=== PATIENT | male | born 1955 | race Caucasian/White ===

== ENCOUNTER → 2021-06-09 | Outpatient (CLI) | payer MEDICARE, OTHER ==
--- NOTE | 2021-06-09 14:21 | Diagnostic Imaging Report ---
PROCEDURE: MRI lumbar spine. TECHNIQUE: Multiplanar, multisequence MRI of the lumbar spine was performed without contrast. INDICATION: Low back pain. COMPARISON: None available. FINDINGS: Normal lordosis of the lumbar spine. No spondylolisthesis. No fracture or marrow replacing process. No features of sacral insufficiency fracture. The distal thoracic cord is normal in appearance. No abnormal clumping of the intrathecal nerve roots. The bilateral psoas and paravertebral muscles are normal in appearance. L1-L2: Circumferential disc bulge. No facet arthritis or ligamentum flavum hypertrophy. There is no resultant spinal stenosis or foraminal narrowing. L2-L3: Circumferential disc bulge is asymmetric to the right and there is mild ligamentum flavum hypertrophy. This results in mild narrowing of the right lateral recess but no compression of the transversing nerve roots. Overall there is mild spinal stenosis and [id number] right foraminal narrowing. L3-L4: Diffuse disc bulge with mild ligamentum flavum hypertrophy. No spinal stenosis. Mild bilateral foraminal narrowing. L4-L5: Disc bulge with small central disc protrusion results in moderate narrowing of the right lateral recess but no compression of the nerve root. Mild spinal stenosis is present. Moderate right and mild left foraminal stenosis. L5-S1: No spinal canal or foraminal narrowing. IMPRESSION: 1. No acute abnormality in the lumbar spine. 2. Multilevel degenerative disc disease is most advanced at L4-L5 where there is mild spinal stenosis, moderate right lateral recess narrowing and moderate right foraminal narrowing. Dictated by: Dictated on workstation # [id number]
== END ==
LOC: RAD 09:30
PROVIDERS: ATTEND Physician Assistant
DX: M51.36 Other intervertebral disc degeneration, lumbar region (principal); M48.061 Spinal stenosis, lumbar region without neurogenic claudication
CPT/HCPCS: 72148

== ENCOUNTER 2021-09-10 20:13 | Emergency (ER) | payer MEDICARE, OTHER ==
[~2021-09-10] VITALS: Ht 185 cm; Wt 108.9 kg
--- NOTE | 2021-09-10 20:23 | ED General ---
General Stated Complaint: LEFT ANKLE INJURY History of Present Illness Date Seen by Provider: Sep 10, 2021 Time Seen by Provider: 20:23 Initial Comments Patient presenting to the emergency department for evaluation of left ankle pain that started earlier today while he was marching in the [place] [facility]. He has had increasing pain to the point he can no longer ambulate on it and now the joint is swollen. He denies any weakness numbness tingling erythema warmth and no prior DVT or PE. He is in no acute distress with normal vital signs. Allergies and Home Medications Allergies Coded Allergies: No Known Drug Allergies (Unverified , 09/10/21) Patient Home Medication List Home Medication List Reviewed: Yes Review of Systems Review of Systems Constitutional: no symptoms reported Musculoskeletal: joint pain, joint swelling Skin: no symptoms reported Psychiatric/Neurological: No Symptoms Reported All Other Systems Reviewed Negative Unless Noted: Yes Physical Exam Vital Signs Vital Signs - First Documented 09/10/21 20:18 Temp 36.1 Pulse 98 Resp 18 B/P (MAP) 179/72 (107) Pulse Ox 96 O2 Delivery Room Air Capillary Refill : Height, Weight, BMI Height: '" Weight: lbs. oz. kg; BMI Method: General Appearance: No Apparent Distress, WD/WN Extremity: Normal Capillary Refill, No Calf Tenderness, No Pedal Edema, Other (Left ankle tenderness to palpation of the lateral malleolus and the anterior ankle with a joint effusion noted. No erythema warmth. No bony tenderness along the foot or proximal tib-fib.) Neurologic/Psychiatric: Alert, Oriented x3, No Motor/Sensory Deficits Skin: Warm/Dry Progress/Results/Core Measures Suspected Sepsis SIRS Temperature: Pulse: Respiratory Rate: Blood Pressure / Mean: Results/Orders My Orders Orders - YVETTE SNELL DO Ankle 3 View Left (09/10/21 20:23) Ibuprofen Tablet (Motrin Tablet) (09/10/21 20:30) Hydrocodone/Apap 5/325 Tablet (Lortab 5 (09/10/21 20:30) Medications Given in ED Current Medications Medications Dose Ordered Sig/Kari Route Start Time Stop Time Status Last Admin Dose Admin Acetaminophen/ Hydrocodone Bitart 2 ea ONCE ONCE PO 09/10/21 20:30 09/10/21 20:32 DC 09/10/21 21:00 2 EA Ibuprofen 800 mg ONCE ONCE PO 09/10/21 20:30 09/10/21 20:32 DC 09/10/21 21:01 800 MG Vital Signs/I&O 09/10/21 20:18 Temp 36.1 Pulse 98 Resp 18 B/P (MAP) 179/72 (107) Pulse Ox 96 O2 Delivery Room Air Capillary Refill : Progress Note : Progress Note X-ray is negative for acute process I told him he likely has a sprain with possible partial tear versus full tear and recommended he stay on crutches with an Aircast in place and I will prescribe him supportive medications told to follow-up with his primary care provider within 1 week for recheck as he may need further testing and treatment and come back to the emergency department sooner worsening pain swelling or other general concerns. Patient aware and agreeable with plan and verbalized understanding of the above instructions. Departure Impression Primary Impression: Left ankle effusion Additional Impression: Left ankle sprain Qualified Codes: S93.402A - Sprain of unspecified ligament of left ankle, initial encounter Disposition: HOME, SELF-CARE Condition: Stable Departure-Patient Inst. Referrals: LEFTY AMADO MD (PCP) Primary Care Physician STANLEY VICENTE MD (Family) Primary Care Physician Patient Instructions: Ankle Sprain ED Scripts Ibuprofen (Ibuprofen) 800 Mg Tablet 800 MG PO Q8H PRN for PAIN, #30 TAB 0 Refills Prov: YVETTE SNELL DO 09/10/21 Hydrocodone/Acetaminophen (Hydrocodone-Acetamin 5-325 mg) 1 Each Tablet 1 TAB PO Q4H PRN for PAIN-MODERATE (5-7) for 7 Days, #14 TAB Prov: YVETTE SNELL DO 09/10/21 YVETTE SNELL DO Sep 10, 2021 20:23
[2021-09-10] MEDS ORDERED: HYDROcodone/APAP 5 MG/325 MG (LORTAB) TAB PO ONE (20:30)
[2021-09-10] MEDS ORDERED: IBUPROFEN 800 MG (MOTRIN) TAB PO ONE (20:30)
--- NOTE | 2021-09-10 21:02 | Diagnostic Imaging Report ---
EXAM: Ankle 3 view left INDICATION: Left ankle pain and injury. COMPARISON: None. FINDINGS: No fracture or malalignment. Soft tissue shadows are unremarkable. IMPRESSION: Negative left ankle radiographs. Dictated by: Dictated on workstation # [id number]
[2021-09-10] MEDS ORDERED: IBUP-1780 PO (21:08)
[2021-09-10] MEDS ORDERED: ACHD5005 PO (21:08)
[2021-09-10 21:09] VITALS: BP 179/72
[2021-09-10] MEDS ORDERED: HYDROcodone/APAP 5 MG/325 MG (LORTAB) TAB ONE (21:17)
== END 2021-09-10 21:20 | disposition home or self-care (01) ==
LOC: EDUNIT# 20:13 → ER FS 20:16
DX: S93.402A Sprain of unspecified ligament of left ankle, initial encounter (principal); M25.472 Effusion, left ankle; Y93.01 Activity, walking, marching and hiking
CPT/HCPCS: 73610; 99283; L4350

== ENCOUNTER 2021-10-16 10:28 | Outpatient (CLI) | payer MEDICARE, OTHER ==
[~2021-10-16] VITALS: Ht 185.5 cm; Wt 111.1 kg
[~2021-10-16 10:28] MED LIST: ACHD5005 PO; IBUP-1780 PO
[2021-10-16 10:30] VITALS: BP 125/70
[2021-10-16] MEDS ORDERED: diphenhydrAMINE 50 MG/ML INJ (BENADRYL) IV PRN (10:45)
[2021-10-16] MEDS ORDERED: ONDANSETRON 4 MG/2 ML (SDV) Z0FRAN IV PRN (10:45)
[2021-10-16] MEDS ORDERED: EPINEPHrine INJECTION 1 MG/ML AMP IM PRN (10:45)
[2021-10-16] MEDS ORDERED: ACETAMINOPHEN 500 MG TAB (TYLENOL) PO PRN (10:45)
[2021-10-16] MEDS ORDERED: BAMLANIVIMAB 700 MG/ETESEVIMAB 1,400 MG IN NS IV ONE ×3 (10:45)
[2021-10-16 11:40] VITALS: BP 123/68
== END 2021-10-16 12:17 | disposition home or self-care (01) ==
LOC: INFUSION 10:28
PROVIDERS: ATTEND Family Medicine
DX: U07.1 COVID-19 (principal)

== ENCOUNTER 2021-10-18 11:04 | Emergency (ER) | payer MEDICARE, OTHER ==
[~2021-10-18] VITALS: Ht 185.4 cm; Wt 108.9 kg
[2021-10-18] MEDS ORDERED: NS IV 1000 ML 1,000 ML IV SCH (11:30)
[2021-10-18 11:59] LABS: HEMATOCRIT 52 % (40-54); HEMOGLOBIN 17.8 g/dL (13.3-17.7); MEAN CORPUSCULAR HEMOGLOBIN 31 pg (25-34); MEAN CORPUSCULAR HGB CONC 34 g/dL (32-36); MEAN CORPUSCULAR VOLUME 90 fL (80-99); MEAN PLATELET VOLUME 9.4 fL (9.0-12.2); PLATELET COUNT 284 10^3/uL (130-400); WHITE BLOOD COUNT 6.6 10^3/uL (4.3-11.0)
[2021-10-18 12:00] LABS: ABG BASE EXCESS 4.3 MMOL/L (-2.5-2.5); ABG OXYGEN SATURATION 88 % (94-100); ABG PCO2 33 MMHG (35-45); ABG PH 7.52 (7.37-7.43); ABG PO2 48 MMHG (79-93); ABG TCO2 27.9 MMOL/L (21.0-31.0); BASOPHILS % (AUTO) 0 % (0-10); EOSINOPHILS % (AUTO) 0 % (0-10); LYMPHOCYTES # (AUTO) 0.6 X 10^3 (1.0-4.0); LYMPHOCYTES % (AUTO) 9 % (12-44); MONOCYTES # (AUTO) 0.3 X 10^3 (0.0-1.0); MONOCYTES % (AUTO) 4 % (0-12); NEUTROPHILS # (AUTO) 5.7 X 10^3 (1.8-7.8); NEUTROPHILS % (AUTO) 86 % (42-75)
[2021-10-18 12:01] LABS: ALLENS TEST NEGATIVE; INSPIRED O2 ROOM AIR; PATIENT TEMP 36.3; VENTILATOR NO
[2021-10-18] MEDS ORDERED: RT-ALBUTEROL HFA 8.5 GM INHALER IH PRN (12:15)
[2021-10-18 12:18] LABS: INR 1.1 (0.8-1.4); PROTHROMBIN TIME PATIENT 14.6 SEC (12.2-14.7)
[2021-10-18 12:19] LABS: ALANINE AMINOTRANSFERASE 43 U/L (0-55); ALBUMIN 3.4 GM/DL (3.2-4.5); ALKALINE PHOSPHATASE 72 U/L (40-136); BILIRUBIN,TOTAL 1.1 MG/DL (0.1-1.0); BUN/CREATININE RATIO 31; CALCIUM 8.9 MG/DL (8.5-10.1); CARBON DIOXIDE 26 MMOL/L (21-32); CHLORIDE 95 MMOL/L (98-107); CREATININE SERUM 0.95 MG/DL (0.60-1.30); GFR ESTIMATED 79; GLUCOSE 170 MG/DL (70-105); POTASSIUM 4.2 MMOL/L (3.6-5.0); SODIUM 136 MMOL/L (135-145); TOTAL PROTEIN 7.2 GM/DL (6.4-8.2)
--- NOTE | 2021-10-18 12:22 | Diagnostic Imaging Report ---
Indication: Shortness of breath and COVID 19 positive. TIME OF EXAM: 12:09 PM No prior studies available for comparison. Heart size normal. There is patchy peripheral based infiltrates right midlung as well as both lung bases consistent with pneumonia. There is no effusion or pneumothorax. IMPRESSION: Bilateral infiltrates consistent with COVID 19 pneumonia. Report was faxed to [facility] by tashia at 12:21PM. Dictated by: Dictated on workstation # [id number]
[2021-10-18 12:34] LABS: NEUTROPHILS % (MANUAL) 90 %
--- NOTE | 2021-10-18 12:34 | ED General ---
General Chief Complaint: COVID19 Suspect/Confirmed Stated Complaint: COVID+; LOW O2 Nursing Triage Note: PT TO ROOM FS05 VIA W/C FROM PARKING LOT WITH C/O LOW O2 AT HOME. PT REPORTS HOME O2 OF 75%-80%. PT O2 94% RA UPON ARRIVAL. PT REPORTS COVID POS AND THAT HE HAD THE INFUSION ON TUESDAY. Source of Information: Patient History of Present Illness Date Seen by Provider: Oct 18, 2021 Time Seen by Provider: 11:45 Initial Comments 65-year-old male presenting with complaints of having Covid infection and getting a low oxygen level with a check at home. He had antibody infusion on October 16. Today he was checking his oxygen level and it was picking up in the 75 to 80% range on his finger. On arrival to the ED in the room he had a oxygen saturation of 94% on room air. He was having cough that was mostly nonproductive. He has had diarrhea about once to twice a day. He states he has had some dry heaves. He has not been eating or drinking very much. He has had chills and body aches. He overall does not feel well. He was concerned that he might need oxygen or admission since his oxygen saturations were reading low at home. Modifying Factors: worse with Movement (Easily winded with movement and activity) Associated Systoms: No Chest Pain; Cough; No Diaphoresis; Fever/Chills; No Headaches; Loss of Appetite, Malaise, Nausea/Vomiting (Dry heaves); No Rash, No Seizure; Shortness of Air; No Syncope; Weakness (Generalized) Allergies and Home Medications Allergies Coded Allergies: No Known Drug Allergies (Unverified , 10/16/21) Patient Home Medication List Home Medication List Reviewed: Yes Azithromycin (Azithromycin) 500 Mg Tablet, 500 MG PO DAILY Prescribed by: JAMES LEWIS on 10/18/21 142 Hydrocodone/Acetaminophen (Hydrocodone-Acetamin 5-325 mg) 1 Each Tablet, 1 TAB PO Q4H PRN for PAIN-MODERATE (5-7) Prescribed by: YVETTE SNELL on 09/10/212107 Ibuprofen (Ibuprofen) 800 Mg Tablet, 800 MG PO Q8H PRN for PAIN Prescribed by: YVETTE SNELL on 09/10/212107 Metoclopramide HCl (Metoclopramide HCl) 10 Mg Tablet, 10 MG PO Q6H PRN for NAUSEA/VOMITING Prescribed by: JAMES LEWIS on 10/18/21 1427 Review of Systems Review of Systems Constitutional: chills; No diaphoresis, No fever; malaise, weakness EENTM: nose congestion Respiratory: cough, dyspnea on exertion, short of breath; No stridor; wheezing Cardiovascular: No chest pain; palpitations Gastrointestinal: see HPI, nausea; No vomiting (Having dry heaves) Genitourinary: decreased output; No dysuria Musculoskeletal: muscle pain (Generalized body aches) Skin: No rash Psychiatric/Neurological: Denies Numbness, Denies Paresthesia; Weakness (Generalized) Hematologic/Lymphatic: Denies Blood Clots, Denies Easy Bleeding, Denies Easy Bruising Past Kgswuzy-Aisshz-Ubbpxu Hx Patient Social History Tobacco Use?: No Smoking Status: Never a Smoker Smokeless Tobacco Frequency: Never a User Use of E-Cig and/or Vaping Chip: Never a User Substance use?: No Alcohol Use?: No Pt feels they are or have been: No Immunizations Up To Date First/Initial COVID19 Vaccinat: na Past Medical History Surgery/Hospitalization HX: Covid 19 infection September 2021 Physical Exam Vital Signs Vital Signs - First Documented 10/18/21 11:15 Temp 36.6 Pulse 91 Resp 17 B/P (MAP) 129/67 (87) O2 Delivery Room Air Capillary Refill : Less Than 3 Seconds Height, Weight, BMI Height: '" Weight: lbs. oz. kg; 31.00 BMI Method: General Appearance: Anxious, Mild Distress, Obese HEENT: PERRL/EOMI, Pharynx Normal Neck: Full Range of Motion, Normal Inspection, Non Tender, Supple Respiratory: Accessory Muscle Use, Decreased Breath Sounds; No Rales, No Rhonci, No Stridor; Wheezing Cardiovascular: Regular Rate, Rhythm, Normal Peripheral Pulses Gastrointestinal: Normal Bowel Sounds, No Pulsatile Mass, Non Tender, Soft Rectal: Deferred Extremity: Normal Capillary Refill, Normal Inspection, Non Tender, No Calf Tenderness, No Pedal Edema Neurologic/Psychiatric: Alert, Oriented x3 Skin: Normal Color, Warm/Dry Focused Exam Lactate Level 10/18/21 11:51: Lactic Acid Level 2.79*H Lactic Acid Level Laboratory Tests Test 10/18/21 11:51 Lactic Acid Level 2.79 MMOL/L (0.50-2.00) *H Progress/Results/Core Measures Suspected Sepsis SIRS Temperature: Pulse: 91 Respiratory Rate: 17 Laboratory Tests 10/18/21 11:51: White Blood Count 6.6 Blood Pressure 129 /67 Mean: 87 10/18/21 11:51: Lactic Acid Level 2.79*H Laboratory Tests 10/18/21 11:51: Creatinine 0.95, INR Comment 1.1, Platelet Count 284, Total Bilirubin 1.1H Results/Orders Lab Results Laboratory Tests Test 10/18/21 11:51 Range/Units White Blood Count 6.6 4.3-11.0 10^3/uL Red Blood Count 5.79 H 4.30-5.52 10^6/uL Hemoglobin 17.8 H 13.3-17.7 g/dL Hematocrit 52 40-54 % Mean Corpuscular Volume 90 80-99 fL Mean Corpuscular Hemoglobin 31 25-34 pg Mean Corpuscular Hemoglobin Concent 34 32-36 g/dL Red Cell Distribution Width 12.4 10.0-14.5 % Platelet Count 284 130-400 10^3/uL Mean Platelet Volume 9.4 9.0-12.2 fL Immature Granulocyte % (Auto) 0 % Neutrophils (%) (Auto) 86 H 42-75 % Lymphocytes (%) (Auto) 9 L 12-44 % Monocytes (%) (Auto) 4 0-12 % Eosinophils (%) (Auto) 0 0-10 % Basophils (%) (Auto) 0 0-10 % Neutrophils # (Auto) 5.7 1.8-7.8 X 10^3 Lymphocytes # (Auto) 0.6 L 1.0-4.0 X 10^3 Monocytes # (Auto) 0.3 0.0-1.0 X 10^3 Eosinophils # (Auto) 0.0 0.0-0.3 10^3/uL Basophils # (Auto) 0.0 0.0-0.1 10^3/uL Immature Granulocyte # (Auto) 0.0 0.0-0.1 10^3/uL Neutrophils % (Manual) 90 % Lymphocytes % (Manual) 8 % Monocytes % (Manual) 2 % Toxic Granulation 4+ Platelet Estimate LRG PLTS Prothrombin Time 14.6 12.2-14.7 SEC INR Comment 1.1 0.8-1.4 Activated Partial Thromboplast Time 28 24-35 SEC D-Dimer 1.67 H 0.00-0.49 UG/ML Blood Gas Puncture Site RIGHT RADIAL Blood Gas Patient Temperature 36.3 Arterial Blood pH 7.52 H 7.37-7.43 Arterial Blood Partial Pressure CO2 33 L 35-45 MMHG Arterial Blood Partial Pressure O2 48 L 79-93 MMHG Arterial Blood HCO3 27 23-27 MMOL/L Arterial Blood Total CO2 27.9 21.0-31.0 MMOL/L Arterial Blood Oxygen Saturation 88 L 94-100 % Arterial Blood Base Excess 4.3 H -2.5-2.5 MMOL/L Walter Test NEGATIVE Blood Gas Ventilator Setting NO Blood Gas Inspired Oxygen ROOM AIR Sodium Level 136 135-145 MMOL/L Potassium Level 4.2 3.6-5.0 MMOL/L Chloride Level 95 L 98-107 MMOL/L Carbon Dioxide Level 26 21-32 MMOL/L Anion Gap 15 H 5-14 MMOL/L Blood Urea Nitrogen 29 H 7-18 MG/DL Creatinine 0.95 0.60-1.30 MG/DL Estimat Glomerular Filtration Rate 79 BUN/Creatinine Ratio 31 Glucose Level 170 H 70-105 MG/DL Lactic Acid Level 2.79 *H 0.50-2.00 MMOL/L Calcium Level 8.9 8.5-10.1 MG/DL Corrected Calcium 9.4 8.5-10.1 MG/DL Total Bilirubin 1.1 H 0.1-1.0 MG/DL Aspartate Amino Transf (AST/SGOT) 60 H 5-34 U/L Alanine Aminotransferase (ALT/SGPT) 43 0-55 U/L Alkaline Phosphatase 72 40-136 U/L Troponin I < 0.30 <0.30 NG/ML C-Reactive Protein 20.32 H <0.50 MG/DL Total Protein 7.2 6.4-8.2 GM/DL Albumin 3.4 3.2-4.5 GM/DL My Orders Orders - JAMES LEWIS MD Monitor-Rhythm Ecg Trace Only (10/18/21 11:26) Ed Iv/Invasive Line Start (10/18/21 11:26) Cbc With Automated Diff (10/18/21 11:26) Comprehensive Metabolic Panel (10/18/21 11:26) Crp Fs (10/18/21 11:26) Troponin I Fs (10/18/21 11:26) Protime With Inr (10/18/21 11:26) Partial Thromboplastin Time (10/18/21 11:26) Ekg Tracing (10/18/21 11:26) Arterial Blood Gas (10/18/21 11:26) Ns Iv 1000 Ml (Sodium Chloride 0.9%) (10/18/21 11:30) Blood Culture (10/18/21 11:26) Fibrin Degradation Products (10/18/21 11:26) Chest 1 View Ap/Pa Only (10/18/21 11:26) Lactic Acid Analyzer (10/18/21 11:26) O2 (10/18/21 11:28) Manual Differential (10/18/21 11:51) Albuterol Inhaler (Albuterol) (10/18/21 12:15) Nursing Communication (Order) (10/18/21 12:11) Dexamethasone Injection (Decadron Inje (10/18/21 12:11) Ns Iv 1000 Ml (Sodium Chloride 0.9%) (10/18/21 12:35) Ct Angio Chest W (10/18/21 12:36) Iohexol Injection (Omnipaque 350 Mg/Ml 1 (10/18/21 13:15) Received Contrast (Hold Metformin- Contr (10/18/21 13:15) Sodium Chloride Flush (Catheter Flush Sy (10/18/21 13:15) Ns (Ivpb) (Sodium Chloride 0.9% Ivpb Bag (10/18/21 13:15) Ceftriaxone (Rocephin) (10/18/21 14:15) Azithromycin Tablet (Zithromax Tablet) (10/18/21 14:02) Ceftriaxone (Rocephin) (10/18/21 14:20) Ns (Ivpb) (Sodium Chloride 0.9% Ivpb Bag (10/18/21 14:20) Medications Given in ED Current Medications Medications Dose Ordered Sig/Kari Route Start Time Stop Time Status Last Admin Dose Admin Albuterol Sulfate 2 PUFFS with spacer q 2 hours... Q2H PRN IH 10/18/21 12:15 10/18/21 12:24 8.5 GM Ceftriaxone Sodium 1000 mg/ Sterile Water 10 ml @ 60 mls/hr ONCE ONCE IV 10/18/21 14:15 10/18/21 14:24 DC 10/18/21 14:24 60 MLS/HR Iohexol 125 ml ONCE ONCE IV 10/18/21 13:15 10/18/21 13:16 DC 10/18/21 13:29 125 ML Sodium Chloride 10 ml NEEDED PRN IV 10/18/21 13:15 10/18/21 13:29 10 ML Sodium Chloride 100 ml ONCE ONCE IV 10/18/21 13:15 10/18/21 13:16 DC 10/18/21 13:29 80 ML Vital Signs/I&O 10/18/21 10/18/21 11:15 11:15 Temp 36.6 Pulse 91 Resp 17 B/P (MAP) 129/67 (87) O2 Delivery Room Air Room Air Capillary Refill : Less Than 3 Seconds Blood Pressure Mean: 87 Progress Note #1: Progress Note Although his oxygen saturation is in the mid 93 to 95% range will obtain basic labs including ABG. D-dimer to help screen for PE. Give IV fluids for hydration. A dose of Decadron 10 mg IV to help with his Covid infection. Zofran 4 mg IV to help with nausea and decreased appetite. Obtain basic chest x-ray Progress Note #2: Progress Note Labs do not show an elevated white blood cell count. His chemistry shows signs of dehydration with elevated lactic acid of 2.79 and he has negative cardiac enzymes. His chest x-ray shows diffuse patchy infiltrates for Covid pneumonia. The D-dimer was elevated as well as CRP. Ordered a second liter of normal maryan ine for the dehydration and ordered CT angiogram of the chest for his elevated D-dimer to evaluate for possible pulmonary embolism. Use an inhaler with spacer to help with his coughing and breathing Progress Note #3: Progress Note A CT angiogram did not demonstrate any acute pulmonary embolism. He did have diffuse patchy extensive amounts of infiltrate for COVID-19 infection. He had some improvement in how he was feeling here in the ED. He was maintaining his O2 saturation. His ABG did show some alkalosis with his respiratory tachypnea. He had a pH of 7.52, PCO2 33, PO2 48, O2 sat of 88% on room air. This not completely fit with his O2 saturation and clinical picture so it may have been more of a mixed venous specimen. Will treat with Rocephin and Zithromax for possible bacterial on top of viral pneumonia. The Decadron 10 mg IV x1. Albuterol inhaler 2 puffs every 4 hours as needed for wheezing and shortness of breath. ECG Initial ECG Impression Date: Oct 18, 2021 Initial ECG Impression Time: 11:50 Initial ECG Rate: 90 Initial ECG Rhythm: Normal Sinus Initial ECG Comparisson: No Previous ECG Available Comment Normal sinus rhythm with a heart rate of [address] elevation. IA interval 137 ms. QT interval 348 ms with a QTc interval 426 ms. No prior tracing immediately available for comparison. Diagnostic Imaging Diagonstic Imaging: Xray Plain Films/CT/US/NM/MRI: chest Comments [facility], [place] NAME: STANLEY [facility] REC#: [id number] PT STATUS: REG ER : 1955 PHYSICIAN: JAMES LEWIS MD ADMIT DATE: 10/18/21/ER FS Draft Date of Exam:10/18/21 CHEST 1 VIEW AP/PA ONLY Indication: Shortness of breath and COVID 19 positive. TIME OF EXAM: 12:09 PM No prior studies available for comparison. Heart size normal. There is patchy peripheral based infiltrates right midlung as well as both lung bases consistent with pneumonia. There is no effusion or pneumothorax. IMPRESSION: Bilateral infiltrates consistent with COVID 19 pneumonia. Report was faxed to [facility] by alivia at 12:21PM. Dictated on workstation # [id number] Dict: 10/18/21 1217 Trans: 10/18/21 1221 ALIVIA [id number] Interpreted by: CHARLES BHAGAT MD Electronically signed by: Reviewed: Reviewed by Me Diagonstic Imaging: CT Plain Films/CT/US/NM/MRI: chest Comments [facility], [place] NAME: STANLEY [facility] REC#: [id number] PT STATUS: REG ER : 1955 PHYSICIAN: JAMES LEWIS MD ADMIT DATE: 10/18/21/ER FS Draft Date of Exam:10/18/21 CT ANGIO CHEST W PROCEDURE: CT angiography of the chest with contrast. TECHNIQUE: Multiple contiguous axial images were obtained through the chest after uneventful bolus administration of intravenous contrast. 3D reconstructed CTA MIP acquisitions were also performed. Auto Exposure Controls were utilized during the CT exam to meet ALARA standards for radiation dose reduction. INDICATION: Shortness of breath. Patient is COVID-19 positive with elevated D-dimer. COMPARISON: No prior studies are available for comparison. FINDINGS: There is a large mass arising from the left lobe of the thyroid gland measuring 3.4 cm. Evaluation of the pulmonary arterial system is without evidence of thromboembolism. No definite filling defects are seen within central, lobar or segmental branches. Thoracic aorta is normal in caliber. There is no dissection. There is no pericardial or pleural fluid identified. Extensive groundglass infiltrates are noted throughout bilateral upper and lower lobes consistent with pneumonia. The upper abdomen does show numerous circumscribed low-attenuation lesions within the liver suggestive of cysts. IMPRESSION: 1. No evidence of pulmonary embolism or acute aortic disease. 2. Extensive bilateral groundglass and airspace pulmonary infiltrates consistent with COVID-19 pneumonia. 3. Left lobe thyroid mass. Dedicated thyroid ultrasound on nonemergent basis could be performed for better characterization. 4. Probable hepatic cysts. Dictated on workstation # [id number] Dict: 10/18/21 1334 Trans: 10/18/21 1355 [id number] [id number] Interpreted by: CHARLES BHAGAT MD Electronically signed by: Reviewed: Reviewed by Me Departure Impression Primary Impression: Pneumonia due to COVID-19 virus Additional Impression: Dehydration Disposition: 01 HOME, SELF-CARE Condition: Stable Departure-Patient Inst. Decision time for Depature: 14:21 Referrals: LEFTY AMADO MD (PCP/Family) Primary Care Physician Patient Instructions: COVID-19 ED, Dehydration, Adult ED, How to Use Your Mete red Dose Inhaler (Adults), How to Use a Spacer Add. Discharge Instructions: Make sure to stay more hydrated and getting plenty of rest. Take the full course of the antibiotics to help treat for possible bacterial infection in addition to the COVID infection. Check back with clinic if not improving or continuing to have concerns Use the inhaler to help with shortness of breath and cough. Mucinex to help with congestion and cough All discharge instructions reviewed with patient and/or family. Voiced understanding. Scripts Metoclopramide HCl (Metoclopramide HCl) 10 Mg Tablet 10 MG PO Q6H PRN for NAUSEA/VOMITING for 7 Days, #28 TAB 0 Refills Prov: JAMES LEWIS MD 10/18/21 Azithromycin (Azithromycin) 500 Mg Tablet 500 MG PO DAILY for pneumonia for 4 Days, #4 TAB 0 Refills Prov: JAMES LEWIS MD 10/18/21 JAMES LEWIS MD Oct 18, 2021 12:34
[2021-10-18 12:35] LABS: LYMPHOCYTES % (MANUAL) 8 %; MONOCYTES % (MANUAL) 2 %; PLATELET ESTIMATE LRG PLTS; TOXIC GRANULATION/VACUOLAZATIO 4+
[2021-10-18] MEDS ORDERED: NS IV 1000 ML 1,000 ML IV STA (12:35)
[2021-10-18] MEDS ORDERED: CATHETER FLUSH 10 ML SYR IV PRN (13:15)
[2021-10-18] MEDS ORDERED: NS 100 ML (IVPB) BAG IV ONE (13:15)
[2021-10-18] MEDS ORDERED: IOHEXOL 350 MG/ML 150 ML (OMNIPAQUE 350) VIAL IV ONE (13:15)
[2021-10-18] MEDS ORDERED: HOLD METFORMIN - RECEIVED CONTRAST 20 ML VIAL IV SCH (13:15)
--- NOTE | 2021-10-18 13:56 | Diagnostic Imaging Report ---
PROCEDURE: CT angiography of the chest with contrast. TECHNIQUE: Multiple contiguous axial images were obtained through the chest after uneventful bolus administration of intravenous contrast. 3D reconstructed CTA MIP acquisitions were also performed. Auto Exposure Controls were utilized during the CT exam to meet ALARA standards for radiation dose reduction. INDICATION: Shortness of breath. Patient is COVID-19 positive with elevated D-dimer. COMPARISON: No prior studies are available for comparison. FINDINGS: There is a large mass arising from the left lobe of the thyroid gland measuring 3.4 cm. Evaluation of the pulmonary arterial system is without evidence of thromboembolism. No definite filling defects are seen within central, lobar or segmental branches. Thoracic aorta is normal in caliber. There is no dissection. There is no pericardial or pleural fluid identified. Extensive groundglass infiltrates are noted throughout bilateral upper and lower lobes consistent with pneumonia. The upper abdomen does show numerous circumscribed low-attenuation lesions within the liver suggestive of cysts. IMPRESSION: 1. No evidence of pulmonary embolism or acute aortic disease. 2. Extensive bilateral groundglass and airspace pulmonary infiltrates consistent with COVID-19 pneumonia. 3. Left lobe thyroid mass. Dedicated thyroid ultrasound on nonemergent basis could be performed for better characterization. 4. Probable hepatic cysts. Dictated by: Dictated on workstation # [id number]
[2021-10-18] MEDS ORDERED: AZITHROMYCIN 250 MG TAB (ZITHROMAX) PO STA (14:02)
[2021-10-18] MEDS ORDERED: cefTRIAXone 1,000 MG in WATER (STERILE) FOR INJECTION 10 ML IV ONE (14:15)
[2021-10-18] MEDS ORDERED: cefTRIAXone 1,000 MG VIAL ONE (14:20)
[2021-10-18] MEDS ORDERED: NS (IVPB) 50 ML ONE (14:20)
[2021-10-18] MEDS ORDERED: AZIT500T9 PO (14:27)
[2021-10-18] MEDS ORDERED: MTC10T PO (14:27)
[2021-10-18 15:15] VITALS: BP 126/61
== END 2021-10-18 15:15 | disposition home or self-care (01) ==
LOC: EDUNIT# 11:04 → ER FS 11:06
DX: U07.1 COVID-19 (principal); J12.82 Pneumonia due to coronavirus disease 2019; E86.0 Dehydration; E66.9 Obesity, unspecified; Z68.31 Body mass index [BMI] 31.0-31.9, adult
CPT/HCPCS: 36415; 71045; 71275; 80053; 82805; 83605; 84484; 85007; 85027; 85379; 85610; 85730; 86141; 87040; 93005; 93041; 96361; 96374; 96375

== ENCOUNTER 2021-10-20 11:37 | Inpatient (IN) | payer MEDICARE, OTHER ==
[~2021-10-20] VITALS: Ht 185.5 cm; Wt 99.0 kg
[~2021-10-20 11:37] MED LIST changes: +AZIT500T9 PO; +MTC10T PO
[2021-10-20 12:10] LABS: HEMATOCRIT 47 % (40-54); HEMOGLOBIN 16.3 g/dL (13.3-17.7); MEAN CORPUSCULAR HGB CONC 35 g/dL (32-36); MEAN CORPUSCULAR VOLUME 90 fL (80-99); PLATELET COUNT 448 10^3/uL (130-400); WHITE BLOOD COUNT 8.6 10^3/uL (4.3-11.0)
[2021-10-20 12:11] LABS: MEAN CORPUSCULAR HEMOGLOBIN 31 pg (25-34); MEAN PLATELET VOLUME 9.4 fL (9.0-12.2)
[2021-10-20 12:12] LABS: BASOPHILS % (AUTO) 0 % (0-10); EOSINOPHILS % (AUTO) 0 % (0-10); LYMPHOCYTES # (AUTO) 0.4 X 10^3 (1.0-4.0); LYMPHOCYTES % (AUTO) 5 % (12-44); MONOCYTES # (AUTO) 0.2 X 10^3 (0.0-1.0); MONOCYTES % (AUTO) 2 % (0-12); NEUTROPHILS # (AUTO) 7.9 X 10^3 (1.8-7.8); NEUTROPHILS % (AUTO) 91 % (42-75)
[2021-10-20] MEDS ORDERED: HOLD METFORMIN - RECEIVED CONTRAST 20 ML VIAL IV SCH (12:15)
[2021-10-20] MEDS ORDERED: IOHEXOL 350 MG/ML 150 ML (OMNIPAQUE 350) VIAL IV ONE (12:15)
[2021-10-20] MEDS ORDERED: NS 100 ML (IVPB) BAG IV ONE (12:15)
[2021-10-20] MEDS ORDERED: CATHETER FLUSH 10 ML SYR IV PRN (12:15)
[2021-10-20 12:24] LABS: INR 1.3 (0.8-1.4); PROTHROMBIN TIME PATIENT 17.1 SEC (12.2-14.7)
[2021-10-20 12:46] LABS: BILIRUBIN,TOTAL 1.2 MG/DL (0.1-1.0); BUN/CREATININE RATIO 27; CALCIUM 8.7 MG/DL (8.5-10.1); CARBON DIOXIDE 24 MMOL/L (21-32); CHLORIDE 102 MMOL/L (98-107); CREATININE SERUM 0.92 MG/DL (0.60-1.30); GFR ESTIMATED 82; GLUCOSE 242 MG/DL (70-105); POTASSIUM 4.2 MMOL/L (3.6-5.0); SODIUM 141 MMOL/L (135-145)
[2021-10-20 12:47] LABS: ALANINE AMINOTRANSFERASE 31 U/L (0-55); ALBUMIN 3.2 GM/DL (3.2-4.5); ALKALINE PHOSPHATASE 73 U/L (40-136)
--- NOTE | 2021-10-20 12:54 | Diagnostic Imaging Report ---
Clinical indications: Patient with shortness of air. Exam: Portable chest x-ray upright view. Comparisons: Chest x-ray dated 10/18/2021. Findings: There is interval progression of patchy areas of airspace consolidation and groundglass opacification throughout both lungs. There is no pleural effusion or pneumothorax. Pulmonary vasculature is within normal limits as visualized. Cardiac silhouette is within normal limits for portable projection. There are degenerative spurs involving the spine. Impression: Interval progression of diffuse bilateral lung infiltrates concerning for pneumonia. Dictated by: Dictated on workstation # [id number]
[2021-10-20 12:55] LABS: BAND NEUTROPHILS 0 %; BASOPHILS % (MANUAL) 0 %; EOSINOPHILS % (MANUAL) 0 %; LYMPHOCYTES % (MANUAL) 3 %; MONOCYTES % (MANUAL) 3 %; NEUTROPHILS % (MANUAL) 94 %
[2021-10-20] MEDS ORDERED: NS IV 1000 ML 1,000 ML IV SCH (13:00)
--- NOTE | 2021-10-20 13:02 | ED Cough/URI ---
General Chief Complaint: COVID19 Suspect/Confirmed Stated Complaint: SOB; COVID+ Nursing Triage Note: PT COMES TO ER C/O SHORTNESS OF BREATH. PT INITIAL SATS ON ROOM AIR WERE 68%. Source: patient Exam Limitations: no limitations History of Present Illness Date Seen by Provider: Oct 20, 2021 Time Seen by Provider: 10:30 Initial Comments Patient is a 65-year-old male who presents with shortness of breath hypoxia. Patient presents by private vehicle. Is instructed O2 sats per an upper 60s. Patient evaluated in this emergency department last week and diagnosed with Covid and completed outpatient antibiotic infusion. He was placed on steroids, and albuterol inhaler and antibiotics but has used medication selectively. No chest pain nausea vomiting or sweats. Reports generalized weakness fatigue shortness of breath body aches chills. Timing/Duration: just prior to arrival Severity/Quality: moderate Prior Episodes/Possible Cause: other Modifying Factors: Improves With Other Associated Symptoms: other Allergies and Home Medications Allergies Coded Allergies: No Known Drug Allergies (Unverified , 10/16/21) Patient Home Medication List Home Medication List Reviewed: Yes Azithromycin (Azithromycin) 500 Mg Tablet, 500 MG PO DAILY Prescribed by: JAMES LEWIS on 10/18/21 142 Hydrocodone/Acetaminophen (Hydrocodone-Acetamin 5-325 mg) 1 Each Tablet, 1 TAB PO Q4H PRN for PAIN-MODERATE (5-7) Prescribed by: YVETTE SNELL on 09/10/212107 Ibuprofen (Ibuprofen) 800 Mg Tablet, 800 MG PO Q8H PRN for PAIN Prescribed by: YVETTE SNELL on 09/10/212107 Metoclopramide HCl (Metoclopramide HCl) 10 Mg Tablet, 10 MG PO Q6H PRN for NAUSEA/VOMITING Prescribed by: JAMES LEWIS on 10/18/21 1427 Review of Systems Review of Systems Constitutional: see HPI EENTM: see HPI Respiratory: see HPI Cardiovascular: see HPI Genitourinary: see HPI Skin: see HPI Psychiatric/Neurological: See HPI Hematologic/Lymphatic: See HPI Immunological/Allergic: see HPI All Other Systems Reviewed Negative Unless Noted: Yes Past Mptwqbx-Byqwsb-Tzodmu Hx Patient Social History Tobacco Use?: Yes Use of E-Cig and/or Vaping dev: No Substance use?: No Alcohol Use?: No Pt feels they are or have been: No Immunizations Up To Date First/Initial COVID19 Vaccinat: 2020 Second COVID19 Vaccination Myles: 2020 Past Medical History Surgery/Hospitalization HX: Covid 19 infection September 2021 Physical Exam Vital Signs - First Documented 10/20/21 11:50 Temp 38.1 Pulse 63 Resp 26 B/P (MAP) 153/76 (101) Pulse Ox 98 O2 Delivery NIV Bilevel FiO2 100 Capillary Refill : Less Than 3 Seconds Height: '" Weight: lbs. oz. kg; 31.00 BMI Method: General Appearance: moderate distress (Respiratory), other (Completely ill- appearing) Eyes: Bilateral Eye Normal Inspection, Bilateral Eye PERRL, Bilateral Eye EOMI HEENT: PERRL/EOMI, normal ENT inspection, pharynx normal Neck: non-tender, full range of motion, supple Respiratory: decreased breath sounds, other (Course respiratory) Cardiovascular: normal peripheral pulses, regular rate, rhythm Gastrointestinal: non tender, soft Extremities: normal range of motion, non-tender Neurologic/Psychiatric: no motor/sensory deficits, alert, oriented x 3 Skin: normal color Lymphatic: no adenopathy Focused Exam Sepsis Stage: Ruled Out Lactate Level 10/20/21 11:55: Lactic Acid Level 3.57*H Lactic Acid Level Laboratory Tests Test 10/20/21 11:55 Lactic Acid Level 3.57 MMOL/L (0.50-2.00) *H Progress/Results/Core Measures Suspected Sepsis SIRS Temperature: Pulse: 63 Respiratory Rate: 26 Laboratory Tests 10/20/21 11:55: White Blood Count 8.6 Blood Pressure 153 /76 Mean: 101 10/20/21 11:55: Lactic Acid Level 3.57*H Laboratory Tests 10/20/21 11:55: Creatinine 0.92, INR Comment 1.3, Platelet Count 448H, Total Bilirubin 1.2H Results/Orders Lab Results Laboratory Tests Test 10/20/21 11:55 10/20/21 12:00 Range/Units White Blood Count 8.6 4.3-11.0 10^3/uL Red Blood Count 5.24 4.30-5.52 10^6/uL Hemoglobin 16.3 13.3-17.7 g/dL Hematocrit 47 40-54 % Mean Corpuscular Volume 90 80-99 fL Mean Corpuscular Hemoglobin 31 25-34 pg Mean Corpuscular Hemoglobin Concent 35 32-36 g/dL Red Cell Distribution Width 12.7 10.0-14.5 % Platelet Count 448 H 130-400 10^3/uL Mean Platelet Volume 9.4 9.0-12.2 fL Immature Granulocyte % (Auto) 2 % Neutrophils (%) (Auto) 91 H 42-75 % Lymphocytes (%) (Auto) 5 L 12-44 % Monocytes (%) (Auto) 2 0-12 % Eosinophils (%) (Auto) 0 0-10 % Basophils (%) (Auto) 0 0-10 % Neutrophils # (Auto) 7.9 H 1.8-7.8 X 10^3 Lymphocytes # (Auto) 0.4 L 1.0-4.0 X 10^3 Monocytes # (Auto) 0.2 0.0-1.0 X 10^3 Eosinophils # (Auto) 0.0 0.0-0.3 10^3/uL Basophils # (Auto) 0.0 0.0-0.1 10^3/uL Immature Granulocyte # (Auto) 0.1 0.0-0.1 10^3/uL Neutrophils % (Manual) 94 % Lymphocytes % (Manual) 3 % Monocytes % (Manual) 3 % Eosinophils % (Manual) 0 % Basophils % (Manual) 0 % Band Neutrophils 0 % Prothrombin Time 17.1 H 12.2-14.7 SEC INR Comment 1.3 0.8-1.4 Activated Partial Thromboplast Time 26 24-35 SEC Sodium Level 141 135-145 MMOL/L Potassium Level 4.2 3.6-5.0 MMOL/L Chloride Level 102 98-107 MMOL/L Carbon Dioxide Level 24 21-32 MMOL/L Anion Gap 15 H 5-14 MMOL/L Blood Urea Nitrogen 25 H 7-18 MG/DL Creatinine 0.92 0.60-1.30 MG/DL Estimat Glomerular Filtration Rate 82 BUN/Creatinine Ratio 27 Glucose Level 242 H 70-105 MG/DL Lactic Acid Level 3.57 *H 0.50-2.00 MMOL/L Calcium Level 8.7 8.5-10.1 MG/DL Corrected Calcium 9.3 8.5-10.1 MG/DL Total Bilirubin 1.2 H 0.1-1.0 MG/DL Aspartate Amino Transf (AST/SGOT) 36 H 5-34 U/L Alanine Aminotransferase (ALT/SGPT) 31 0-55 U/L Alkaline Phosphatase 73 40-136 U/L Troponin I < 0.30 <0.30 NG/ML Pro-B-Type Natriuretic Peptide 665.9 H <75.0 PG/ML Total Protein 7.0 6.4-8.2 GM/DL Albumin 3.2 3.2-4.5 GM/DL Blood Gas Puncture Site RT RADIAL Blood Gas Patient Temperature 38.1 Arterial Blood pH 7.53 H 7.37-7.43 Arterial Blood Partial Pressure CO2 29 L 35-45 MMHG Arterial Blood Partial Pressure O2 108 H 79-93 MMHG Arterial Blood HCO3 24 23-27 MMOL/L Arterial Blood Total CO2 25.1 21.0-31.0 MMOL/L Arterial Blood Oxygen Saturation 99 94-100 % Arterial Blood Base Excess 2.2 -2.5-2.5 MMOL/L Walter Test OK Blood Gas Ventilator Setting NO Blood Gas Inspired Oxygen 98% My Orders Orders - OBED SON DO Cbc With Automated Diff (10/20/21 11:57) Comprehensive Metabolic Panel (10/20/21 11:57) Blood Culture (10/20/21 11:57) Sputum Culture (10/20/21 11:57) Urinalysis (10/20/21 11:57) Urine Culture (10/20/21 11:57) Protime With Inr (10/20/21 11:57) Partial Thromboplastin Time (10/20/21 11:57) Chest 1 View Ap/Pa Only (10/20/21 11:57) Ed Iv/Invasive Line Start (10/20/21 11:57) Ed Iv/Invasive Line Start (10/20/21 11:57) Vital Signs Adult Sepsis Patie Q15M (10/20/21 11:57) O2 (10/20/21 11:57) Remove Rings In Anticipation O (10/20/21 11:57) Lactic Acid Analyzer (10/20/21 11:57) Arterial Blood Gas (10/20/21 11:57) Ct Angio Chest W (10/20/21 11:57) Troponin I Fs (10/20/21 12:00) Probnp Fs (10/20/21 12:00) Iohexol Injection (Omnipaque 350 Mg/Ml 1 (10/20/21 12:15) Received Contrast (Hold Metformin- Contr (10/20/21 12:15) Sodium Chloride Flush (Catheter Flush Sy (10/20/21 12:15) Ns (Ivpb) (Sodium Chloride 0.9% Ivpb Bag (10/20/21 12:15) Manual Differential (10/20/21 11:55) Ns Iv 1000 Ml (Sodium Chloride 0.9%) (10/20/21 13:00) Piperacillin Sodium/Tazobactam (Zosyn Vi (10/20/21 13:30) Arterial Blood Gas (10/20/21 13:28) Enoxaparin Injection (Lovenox Injection) (10/20/21 14:00) Medications Given in ED Current Medications Medications Dose Ordered Sig/Kari Route Start Time Stop Time Status Last Admin Dose Admin Iohexol 150 ml ONCE ONCE IV 10/20/21 12:15 10/20/21 12:16 DC 10/20/21 12:47 125 ML Piperacillin Sod/ Tazobactam Sod 4.5 gm/Sodium Chloride 100 ml @ 200 mls/hr ONCE ONCE IV 10/20/21 13:30 10/20/21 13:59 DC 10/20/21 13:47 200 MLS/HR Sodium Chloride 10 ml NEEDED PRN IV 10/20/21 12:15 10/20/21 12:47 10 ML Sodium Chloride 100 ml ONCE ONCE IV 10/20/21 12:15 10/20/21 12:16 DC 10/20/21 12:47 80 ML Vital Signs/I&O 10/20/21 10/20/21 10/20/21 11:50 11:50 11:55 Temp 38.1 Pulse 63 Resp 26 B/P (MAP) 153/76 (101) Pulse Ox 98 68 98 O2 Delivery NIV Bilevel Room Air NIV Bilevel FiO2 100 100 Capillary Refill : Less Than 3 Seconds Blood Pressure Mean: 101 Departure Communication (Admissions) Chest x-ray: CTA chest. Patient with acute respiratory failure with hypoxia. Patient stable on CPAP exam and history are consistent with Covid pneumonia. Antibiotics, IV fluids given. CTA chest performed for evaluation of possible PE. Findings are inconclusive, given patient's high risk status. Empiric therapeutic Lovenox was given. Dr. Park accepts to [facility] ICU Impression Primary Impression: Acute respiratory failure due to COVID-19 Disposition: 09 ADMITTED INPATIENT Condition: Critical Admissions Decision to Admit Reason: Admit from ER (General) Decision to Admit/Date: Oct 20, 2021 Time/Decision to Admit Time: 13:30 Transfer Transfer Reason: Exceeds level of care Departure-Patient Inst. Referrals: SELF,LEFTY LEAL (PCP/Family) Primary Care Physician OBED SON DO Oct 20, 2021 13:02
[2021-10-20] MEDS ORDERED: PIPERACILLIN SODIUM/TAZOBACTAM 4.5 GM in NS (IVPB) 100 ML IV ONE (13:30)
[2021-10-20 13:37] LABS: ABG BASE EXCESS 2.2 MMOL/L (-2.5-2.5); ABG OXYGEN SATURATION 99 % (94-100); ABG PCO2 29 MMHG (35-45); ABG PH 7.53 (7.37-7.43); ABG PO2 108 MMHG (79-93); ABG TCO2 25.1 MMOL/L (21.0-31.0)
[2021-10-20 13:38] LABS: ALLENS TEST OK; INSPIRED O2 98%; VENTILATOR NO
[2021-10-20 13:39] LABS: PATIENT TEMP 38.1
--- NOTE | 2021-10-20 13:45 | Diagnostic Imaging Report ---
CLINICAL INDICATION: Patient with shortness of air. EXAM: CT angiogram of the chest performed with 125 cc Omnipaque 350 IV contrast. Coronal and oblique MIP images of the vasculature were created to better evaluate anatomy. Auto Exposure Controls were utilized during the CT exam to meet ALARA standards for radiation dose reduction. COMPARISON: CT angiogram of the chest dated 10/18/2021. FINDINGS: There are stable diffuse patchy and geographic areas of groundglass opacification, most pronounced in the periphery. There is interval progression of diffuse patchy areas of consolidation involving the posterior aspects of both lungs with a small degree involving the periphery of the right lung and left major fissure region. There is interval development of small bilateral pleural effusions. There is no pneumothorax. There is a 2.7 cm low-density nodule involving the left thyroid lobe. Again noted are multiple enlarged lymph nodes in the mediastinum and hilar regions with the right side more than the left. A marker lymph node is in the right tracheobronchial region and measures 10 mm x 18 mm. There is no axillary lymphadenopathy. There is no thoracic aortic aneurysm or dissection. There is motion artifact and lung disease which limit evaluation of the pulmonary arteries. The right and left main pulmonary arteries and bilateral subsegmental pulmonary arteries and proximal subsegmental pulmonary arteries are patent. The more distal branches are not well visualized and partially obscured by artifact. There is no evidence of pulmonary embolism seen on this exam. There are multiple circumscribed low-density areas involving the right and left lobes of the liver. The largest one measures 2.1 cm with Hounsfield units of 3, suspected to represent cysts. The remainder of the visualized upper abdominal structures shows no significant abnormality. There are degenerative spurs involving the spine. IMPRESSION: 1: There is interval progression of diffuse patchy consolidation predominantly involving the periphery of both lungs. There is no significant change to the diffuse patchy and geographic areas of groundglass opacification throughout both lungs, concerning for pneumonia. There is interval development of small bilateral pleural effusions. There is no pneumothorax. 2: There is limited visualization of the pulmonary arteries. There is no definite pulmonary embolism. There is no thoracic aortic aneurysm or dissection. 3: Stable mediastinal and hilar lymphadenopathy. 4: There is a 2.7 cm nodule involving the left thyroid lobe. A nonemergent thyroid ultrasound would better evaluate. 5: Likely multiple liver cysts. Dictated by: Dictated on workstation # [id number]
[2021-10-20] MEDS ORDERED: ENOXAPARIN 100 MG/1 ML (LOVENOX) SYR SC SCH ×2 (14:00→16:00)
[2021-10-20] MEDS ORDERED: ONDANSETRON 4 MG/2 ML (SDV) Z0FRAN IV PRN (16:00)
[2021-10-20] MEDS ORDERED: HYDROcodone/APAP 5 MG/325 MG (LORTAB) TAB PO PRN (16:00)
[2021-10-20] MEDS ORDERED: morphine INJ 10 MG/ML 1ML (SYR OR VIAL) IVP PRN (16:00)
[2021-10-20] MEDS ORDERED: ACETAMINOPHEN 325 MG TABLET PO PRN (16:00)
[2021-10-20] MEDS ORDERED: PIPERACILLIN SODIUM/TAZOBACTAM 4.5 GM in NS (IVPB) 100 ML IV NR (16:15)
[2021-10-20 16:25] VITALS: BP 153/79
[2021-10-20] MEDS: NS IV 1000 ML 1,000 ML IV SCH (16:28)
--- NOTE | 2021-10-20 16:52 | Tele-ICU Consult ---
History of Present Illness History of Present Illness Date Seen by Provider: Oct 20, 2021 Time Seen by Provider: 16:51 Date of Admission Allergies and Home Medications Allergies Coded Allergies: No Known Drug Allergies (Unverified , 10/16/21) Home Medications Azithromycin 500 Mg Tablet, 500 MG PO DAILY Prescribed by: JAMES LEWIS on 10/18/211426 Hydrocodone/Acetaminophen 1 Each Tablet, 1 TAB PO Q4H PRN for PAIN-MODERATE (5- 7) Prescribed by: YVETTE SNELL on 09/10/212107 Ibuprofen 800 Mg Tablet, 800 MG PO Q8H PRN for PAIN Prescribed by: YVETTE SNELL on 09/10/212107 Metoclopramide HCl 10 Mg Tablet, 10 MG PO Q6H PRN for NAUSEA/VOMITING Prescribed by: JAMES LEWIS on 10/18/211426 Past Medical/Social/Family Hx Patient Social History Tobacco Use?: No Use of E-Cig and/or Vaping dev: No E-Cig and/or Vaping Freq: Never a User Substance use?: No Alcohol Use?: No Pt stated abuse/neglect: No Immunizations Up To Date Influenza Vaccine Up-to-Date: No; Not Current First/Initial COVID19 Vaccinat: 2020 Second COVID19 Vaccination Myles: 2020 Current Status Advance Directives: No Communicates: Verbally Primary Language: Micronesian Preferred Spoken Language: Micronesian Is interpretation needed?: No Review of Systems Constitutional: see HPI Focused Exam Lactate Level 10/20/21 11:55: Lactic Acid Level 3.57*H 10/20/21 13:55: Lactic Acid Level 2.65*H Height, Weight, BMI Height: '" Weight: lbs. oz. kg; 28.97 BMI Method: Lactic Acid Level Laboratory Tests Test 10/20/21 13:55 Lactic Acid Level 2.65 MMOL/L (0.50-2.00) *H Exam Exam Patient acknowledged, consented, and participated in this virtual visit which was conducted using real time audio/video Vital Signs Date Time Temp Pulse Resp B/P (MAP) Pulse Ox O2 Delivery O2 Flow Rate FiO2 10/20/21 16:32 NIV Bilevel 60.00 10/20/21 16:25 37.1 97 98 100 10/20/21 16:03 NIV Bilevel 70.00 10/20/21 16:00 97 32 98 70.00 10/20/21 15:56 37.1 92 36 153/79 97 NIV Bilevel 100.00 10/20/21 15:55 96 NIV Bilevel 60 10/20/21 14:31 36.2 100 20 142/67 96 NIV Bilevel 80.00 10/20/21 11:55 98 NIV Bilevel 100 10/20/21 11:50 38.1 63 26 153/76 (101) 68 Room Air 10/20/21 11:50 98 NIV Bilevel 100 Height & Weight Height: '" Weight: lbs. oz. kg; 28.97 BMI Method: General Appearance: Mild Distress Capillary Refill: Less Than 3 Seconds Gastrointestinal: non tender, soft Results Lab Laboratory Tests 10/20/21 11:55 Assessment/Plan Assessment/Plan Tele-ICU Physician , consultation) Available chart/ vitals / labs / Images reviewed H&P is from ER notes Patient's information available about PMH, Shx, Fhx allergy reviewed in EMR. ROS as per chart and RN report Now in ICU, hemodynamically stable Video assessment done using teleICU camera, rest of exam as per RN Consultants: Hospital course: 10/20- ER>ICU , covid, PNA , BIPAP 14/06 60 % rr 40 , MV 27 L A/P AHRF / ARDS due to severe COVID19 ( CTA neg for PE - BIPAP 14/06 60 % rr 40 , MV 27 L -prone position if able HIGH RISK FOR INTUBATION [id number]-Wrwtxfbtrao-0/COVID-19 PNA ( DX ? unvaccinted , s/p moniclonal AB infusion 10/16 , steroids , abx --Dexamethasone -Hypercoagulable state -> lovenox full dose ( no evidence of large PE on CT on 10/18 and 10/20 ) Suspected superimposed bact PNA -empiric abx started as out patient Kaity boone srtarted on 10/20 Elevated lactate is due to hypoxia - follow Lines : periph (Central Line Necessity Reviewed) Fitzpatrick: OG: Nutrition: Analgesia: Anxiety/ delirium VTE Prophylaxis: panchito full dose Stress Ulcer Prophylaxis: Plans in collaboration with bedside consultants and IM MDs. RN to reach out if any questions or concerns A total of 32 minutes of critical care time was devoted to this patient today, required to treat and/or prevent further deterioration of critical care condition ( as above) . YUVAL VENTURA MD Oct 20, 2021 16:52
[2021-10-20 17:53] LABS: BILIRUBIN,URINE NEGATIVE (NEGATIVE); CLARITY,URINE CLEAR; COLOR,URINE AMBER; GLUCOSE, URINE (UA) 1+ (NEGATIVE); KETONES,URINE NEGATIVE (NEGATIVE); LEUKOCYTE ESTERASE ,URINE NEGATIVE (NEGATIVE); NITRITE,URINE NEGATIVE (NEGATIVE); PH,URINE 6.5 (5-9); PROTEIN,URINE 1+ (NEGATIVE)
[2021-10-20 17:54] LABS: BACTERIA,URINE NEGATIVE /HPF
[2021-10-20] MEDS: ALPRAZolam 0.5 MG (XANAX) TAB PO PRN (17:55)
[2021-10-20 18:18] VITALS: BP 145/79
[2021-10-20] MEDS: RT-ALBUTEROL HFA 8.5 GM INHALER IH SCH ×2 (18:18→21:51)
[2021-10-20] MEDS: PIPERACILLIN SODIUM/TAZOBACTAM 4.5 GM in NS (IVPB) 100 ML IV SCH (20:48)
[2021-10-20 21:51] VITALS: BP 139/81
[2021-10-21] MEDS: RT-ALBUTEROL HFA 8.5 GM INHALER IH SCH ×6 (02:38→22:21)
[2021-10-21 02:39] VITALS: BP 118/74
[2021-10-21] MEDS: ENOXAPARIN 100 MG/1 ML (LOVENOX) SYR SC SCH ×2 (05:23→17:19)
[2021-10-21] MEDS: PIPERACILLIN SODIUM/TAZOBACTAM 4.5 GM in NS (IVPB) 100 ML IV SCH ×3 (05:23→20:14)
[2021-10-21 05:40] LABS: BASOPHILS % (AUTO) 0 % (0-10); EOSINOPHILS % (AUTO) 0 % (0-10); HEMATOCRIT 43 % (40-54); HEMOGLOBIN 14.3 g/dL (13.3-17.7); LYMPHOCYTES # (AUTO) 0.5 10^3/uL (1.0-4.0); LYMPHOCYTES % (AUTO) 8 % (12-44); MEAN CORPUSCULAR HEMOGLOBIN 31 pg (25-34); MEAN CORPUSCULAR HGB CONC 33 g/dL (32-36); MEAN CORPUSCULAR VOLUME 92 fL (80-99); MEAN PLATELET VOLUME 9.7 fL (9.0-12.2); MONOCYTES # (AUTO) 0.1 10^3/uL (0.0-1.0); MONOCYTES % (AUTO) 2 % (0-12); NEUTROPHILS # (AUTO) 5.3 10^3/uL (1.8-7.8); NEUTROPHILS % (AUTO) 89 % (42-75); PLATELET COUNT 344 10^3/uL (130-400); WHITE BLOOD COUNT 5.9 10^3/uL (4.3-11.0)
[2021-10-21 05:59] LABS: ALBUMIN 2.7 GM/DL (3.2-4.5); POTASSIUM 4.2 MMOL/L (3.6-5.0)
[2021-10-21 06:00] LABS: CALCIUM 8.2 MG/DL (8.5-10.1)
[2021-10-21] MEDS ORDERED: KCL 20 MEQ TAB (K-DUR) PO SCH (06:00)
[2021-10-21] MEDS ORDERED: POTASSIUM CL 10MEQ/50ML IVPB 50 ML IV SCH (06:00)
[2021-10-21] MEDS ORDERED: MAGNESIUM 1 GM/100 ML IVPB 100 ML IV SCH (06:00)
[2021-10-21 06:01] LABS: TOTAL PROTEIN 5.9 GM/DL (6.4-8.2)
[2021-10-21 06:03] LABS: BILIRUBIN,TOTAL 0.8 MG/DL (0.1-1.0)
[2021-10-21 06:05] LABS: CREATININE SERUM 0.72 MG/DL (0.60-1.30); PHOSPHORUS 2.9 MG/DL (2.3-4.7)
[2021-10-21 06:08] LABS: MAGNESIUM 2.8 MG/DL (1.6-2.4)
--- NOTE | 2021-10-21 06:53 | History & Physical-Hospitalist ---
History of Present Illness HPI/Chief Complaint CC: SOB with acute hypoxic respiratory failure from Covid-19 HPI: This is a 65yoWM clinic patient of Dr. Gray who presented from [facility] with Covid symptoms and he was in respiratory failure, his CT scan appeared to be heavily involved with Covid-19. I did update his at 1600 hrs. Source: family, RN/MD, old records Exam Limitations: clinical condition Date Seen 10/21/21 Time Seen by a Provider: 11:00 Attending Physician Loretta Merchant Maxwell MD Referring Physician Date of Admission Oct 20, 2021 at 15:42 Home Medications & Allergies Home Medications Reviewed patient Home Medication Reconciliation performed by pharmacy medication reconciliations wafer fab technician and/or nursing. Patients Allergies have been reviewed. Allergies Allergies Coded Allergies No Known Drug Allergies (Gkvkjcbbpm99/17/21) Past Qhwlhdx-Eoyoop-Hrsrtc Hx Patient Social History Marrital Status: Employed/Student: retired Tobacco Use?: No Smoking Status: Former Smoker Use of E-Cig and/or Vaping dev: No Use of E-Cig and/or Vaping Chip: Never a User Substance use?: No Alcohol Use?: No Pt feels they are or have been: No Immunizations Up To Date First/Initial COVID19 Vaccinat: 2020 Second COVID19 Vaccination Myles: 2020 Current Status Advance Directives: No Communicates: Verbally Primary Language: Citizen Of [place] Preferred Spoken Language: Citizen Of [place] Is interpretation needed?: No Review of Systems ROS-Unable to Obtain: On BiPAP Constitutional: see HPI EENTM: no symptoms reported Respiratory: dyspnea on exertion, short of breath Cardiovascular: no symptoms reported Gastrointestinal: no symptoms reported Genitourinary: no symptoms reported Musculoskeletal: no symptoms reported Skin: no symptoms reported Psychiatric/Neurological: No Symptoms Reported All Other Systems Reviewed Negative Unless Noted: Yes Physical Exam Physical Exam Vital Signs Vital Signs - First Documented 10/20/21 10/20/21 11:50 14:31 Temp 38.1 Pulse 63 Resp 26 B/P (MAP) 153/76 (101) Pulse Ox 98 O2 Delivery NIV Bilevel O2 Flow Rate 80.00 FiO2 100 Capillary Refill : Less Than 3 Seconds Height, Weight, BMI Height: '" Weight: lbs. oz. kg; 28.97 BMI Method: General Appearance: Anxious, Chronically ill, Mild Distress, Other (On BiPAP) Eyes: Right Eye Normal Inspection, Right Eye PERRL HEENT: PERRL/EOMI, Normal ENT Inspection, Pharynx Normal, Moist Mucous Membranes Neck: Full Range of Motion, Normal Inspection, Non Tender Respiratory: Chest Non Tender, No Respiratory Distress, Accessory Muscle Use, Decreased Breath Sounds, Wheezing Cardiovascular: Regular Rate, Rhythm, No Edema, No Gallop, No JVD, No Murmur, Normal Peripheral Pulses Gastrointestinal: Normal Bowel Sounds, No Organomegaly, No Pulsatile Mass, Non Tender, Soft Back: Normal Inspection, No CVA Tenderness, No Vertebral Tenderness Extremity: Normal Capillary Refill, Normal Inspection, Normal Range of Motion, Non Tender, No Calf Tenderness, No Pedal Edema Neurologic/Psychiatric: Alert, Oriented x3, No Motor/Sensory Deficits, Normal Mood/Affect Skin: Normal Color, Warm/Dry Lymphatic: No Adenopathy Results Results/Procedures Labs Laboratory Tests 10/20/21 11:55 10/21/21 04:55 Patient resulted labs reviewed. Assessment/Plan Admission Diagnosis Assessment: Acute hypoxic respiratory failure COVID-19 pneumonia DO NOT INTUBATE Plan: COVID-19 protocol Updated Patient high risk for intubation but he declines Admission Status: Inpatient Order (span 2 midnights) Reason for Inpatient Admission: Respiratory failure Diagnosis/Problems Diagnosis/Problems (1) Acute respiratory failure due to COVID-19 Status: Acute (2) Pneumonia due to COVID-19 virus Status: Acute (3) Dehydration Status: Acute LORETTA MERCHANT DO Oct 21, 2021 06:53
[2021-10-21 07:46] VITALS: BP 119/69
[2021-10-21] MEDS: KCL 20 MEQ TAB (K-DUR) PO SCH (07:58)
[2021-10-21] MEDS: POTASSIUM CL 10MEQ/50ML IVPB 50 ML IV SCH (07:58)
[2021-10-21] MEDS: MAGNESIUM 1 GM/100 ML IVPB 100 ML IV SCH (07:59)
[2021-10-21] MEDS ORDERED: AZIT500T9 PO (09:33)
[2021-10-21] MEDS ORDERED: MTC10T PO (09:33)
[2021-10-21] MEDS ORDERED: ACHD5005 PO (09:33)
[2021-10-21] MEDS ORDERED: IBUP-1780 PO (09:33)
[2021-10-21] MEDS ORDERED: OMEG-160 PO (09:40)
--- NOTE | 2021-10-21 10:02 | Tele-ICU Progress Note ---
Subjective Date Seen by a Provider: Oct 21, 2021 Time Seen by a Provider: 10:02 Subjective/Events-last exam DID NOT TOLERATE VAPO THERM. BACK ON BIPAP Sepsis Event Evaluation Height, Weight, BMI Height: '" Weight: lbs. oz. kg; 28.97 BMI Method: Focused Exam Lactate Level 10/20/21 11:55: Lactic Acid Level 3.57*H 10/20/21 13:55: Lactic Acid Level 2.65*H 10/20/21 18:04: Lactic Acid Level 1.62 Exam Exam Patient acknowledged, consented, and participated in this virtual visit which was conducted using real time audio/video Vital Signs Date Time Temp Pulse Resp B/P (MAP) Pulse Ox O2 Delivery O2 Flow Rate FiO2 10/21/21 09:34 92 NIV Bilevel 100.00 10/21/21 08:54 89 Vapotherm 40.00 100.00 10/21/21 08:53 89 Vapotherm 40.00 100 10/21/21 08:00 36.5 10/21/21 07:46 80 33 93 75.00 10/21/21 06:00 74 27 120/67 90 NIV Bilevel 75.00 10/21/21 05:00 70 12 117/66 92 NIV Bilevel 75.00 10/21/21 04:00 70 34 116/70 92 NIV Bilevel 75.00 10/21/21 04:00 96 NIV Bilevel 50 10/21/21 04:00 36.2 10/21/21 03:00 78 19 127/67 94 NIV Bilevel 75.00 10/21/21 02:39 78 32 93 75.00 10/21/21 02:36 NIV Bilevel 75.00 10/21/21 02:00 77 25 132/67 90 NIV Bilevel 50.00 10/21/21 01:00 80 31 118/68 91 NIV Bilevel 50.00 10/21/21 01:00 78 10/21/21 00:00 96 NIV Bilevel 50 10/21/21 00:00 37.0 10/21/21 00:00 79 36 122/67 92 NIV Bilevel 50.00 10/20/21 23:00 86 30 120/69 93 NIV Bilevel 50.00 10/20/21 22:00 86 15 129/71 94 NIV Bilevel 50.00 10/20/21 21:51 81 32 93 50.00 10/20/21 21:15 92 32 150/74 95 NIV Bilevel 50.00 10/20/21 20:11 36.4 10/20/21 20:00 79 12 134/73 93 NIV Bilevel 50.00 10/20/21 20:00 96 NIV Bilevel 50 10/20/21 19:45 100 24 137/75 91 NIV Bilevel 50.00 10/20/21 19:30 101 162/75 NIV Bilevel 50.00 10/20/21 19:15 84 151/82 93 NIV Bilevel 50.00 10/20/21 19:00 108 10/20/21 19:00 95 138/84 93 NIV Bilevel 50.00 10/20/21 18:18 91 32 93 50.00 10/20/21 18:00 92 15 140/87 93 NIV Bilevel 50.00 10/20/21 17:22 94 NIV Bilevel 50.00 10/20/21 17:00 88 10 140/80 95 NIV Bilevel 60.00 10/20/21 16:32 NIV Bilevel 60.00 10/20/21 16:25 37.1 97 98 100 10/20/21 16:03 NIV Bilevel 70.00 10/20/21 16:00 97 32 98 70.00 10/20/21 16:00 110 27 136/81 97 NIV Bilevel 100.00 10/20/21 15:56 37.1 92 36 153/79 97 NIV Bilevel 100.00 10/20/21 15:55 96 NIV Bilevel 60 10/20/21 15:55 96 10/20/21 14:31 36.2 100 20 142/67 96 NIV Bilevel 80.00 10/20/21 11:55 98 NIV Bilevel 100 10/20/21 11:50 38.1 63 26 153/76 (101) 68 Room Air 10/20/21 11:50 98 NIV Bilevel 100 I & O 10/21/21 07:00 Intake Total 300 ml Output Total 925 ml Balance -625 ml Height & Weight Height: '" Weight: lbs. oz. kg; 28.97 BMI Method: General Appearance: Mild Distress Capillary Refill: Less Than 3 Seconds Gastrointestinal: non tender, soft Results Lab Laboratory Tests 10/20/21 11:55 10/21/21 04:55 Assessment/Plan Assessment/Plan Tele-ICU Physician , consultation) Available chart/ vitals / labs / Images reviewed H&P is from ER notes Patient's information available about PMH, Shx, Fhx allergy reviewed in EMR. ROS as per chart and RN report Now in ICU, hemodynamically stable Video assessment done using teleICU camera, rest of exam as per RN Consultants: Hospital course: 10/20- ER>ICU , covid, PNA , BIPAP 15 60 % rr 40 , MV 27 L 10/21. TRIED ON VAPO THERM . DID NOT TOLERATE. BACK ON BIPAP 14/06 WITH 100% FIO2 A/P AHRF / ARDS due to severe COVID19 ( CTA neg for PE - BIPAP 14/06 100 % -prone position if able HIGH RISK FOR INTUBATION [id number]-Hgxxuildfdy-7/COVID-19 PNA ( DX ? unvaccinted , s/p moniclonal AB infusion 10/16 , steroids , abx --Dexamethasone -Hypercoagulable state -> lovenox full dose ( no evidence of large PE on CT on 10/18 and 10/20 ) Suspected superimposed bact PNA -empiric abx started as out patient Kaity boone srtarted on 10/20 Elevated lactate is due to hypoxia - follow Lines : periph (Central Line Necessity Reviewed) Fitzpatrick: OG: Nutrition: Analgesia: Anxiety/ delirium VTE Prophylaxis: panchito full dose Stress Ulcer Prophylaxis: Plans in collaboration with bedside consultants and IM MDs. RN to reach out if any questions or concerns A total of 25 minutes of critical care time was devoted to this patient today, required to treat and/or prevent further deterioration of critical care condition ( as above) . Critical Care: Critically Ill Patient SHARITA CASTANEDA MD Oct 21, 2021 10:02
[2021-10-21 10:34] VITALS: BP 122/67
[2021-10-21] MEDS: NS IV 1000 ML 1,000 ML IV SCH ×2 (11:02→17:19)
[2021-10-21] MEDS: DexMEDEtomidine 250 ML DRIP 250 ML IV SCH (11:04)
[2021-10-21 14:50] VITALS: BP 141/74
[2021-10-21 18:56] VITALS: BP 141/79
[2021-10-21 22:21] VITALS: BP 134/72
[2021-10-22 02:24] VITALS: BP 121/60
[2021-10-22] MEDS: RT-ALBUTEROL HFA 8.5 GM INHALER IH SCH ×6 (02:24→22:43)
[2021-10-22] MEDS: PIPERACILLIN SODIUM/TAZOBACTAM 4.5 GM in NS (IVPB) 100 ML IV SCH ×3 (05:12→20:21)
[2021-10-22] MEDS: ENOXAPARIN 100 MG/1 ML (LOVENOX) SYR SC SCH ×2 (05:12→17:08)
[2021-10-22 05:48] LABS: BASOPHILS % (AUTO) 0 % (0-10); EOSINOPHILS % (AUTO) 0 % (0-10); HEMATOCRIT 46 % (40-54); HEMOGLOBIN 15.3 g/dL (13.3-17.7); LYMPHOCYTES # (AUTO) 0.5 10^3/uL (1.0-4.0); LYMPHOCYTES % (AUTO) 7 % (12-44); MEAN CORPUSCULAR HEMOGLOBIN 31 pg (25-34); MEAN CORPUSCULAR HGB CONC 33 g/dL (32-36); MEAN CORPUSCULAR VOLUME 93 fL (80-99); MEAN PLATELET VOLUME 9.8 fL (9.0-12.2); MONOCYTES # (AUTO) 0.1 10^3/uL (0.0-1.0); MONOCYTES % (AUTO) 2 % (0-12); NEUTROPHILS # (AUTO) 6.3 10^3/uL (1.8-7.8); NEUTROPHILS % (AUTO) 91 % (42-75); PLATELET COUNT 388 10^3/uL (130-400); WHITE BLOOD COUNT 6.9 10^3/uL (4.3-11.0)
[2021-10-22 05:59] LABS: ALBUMIN 2.8 GM/DL (3.2-4.5); POTASSIUM 4.2 MMOL/L (3.6-5.0)
[2021-10-22 06:01] LABS: CALCIUM 8.5 MG/DL (8.5-10.1)
[2021-10-22 06:02] LABS: TOTAL PROTEIN 6.2 GM/DL (6.4-8.2)
[2021-10-22 06:04] LABS: BILIRUBIN,TOTAL 0.7 MG/DL (0.1-1.0)
[2021-10-22 06:06] LABS: CREATININE SERUM 0.71 MG/DL (0.60-1.30)
[2021-10-22 06:08] LABS: MAGNESIUM 2.5 MG/DL (1.6-2.4)
[2021-10-22 07:45] VITALS: BP 144/87
[2021-10-22] MEDS: KCL 20 MEQ TAB (K-DUR) PO SCH (07:47)
[2021-10-22] MEDS: MAGNESIUM 1 GM/100 ML IVPB 100 ML IV SCH (07:47)
[2021-10-22] MEDS: POTASSIUM CL 10MEQ/50ML IVPB 50 ML IV SCH (07:47)
[2021-10-22] MEDS: ALPRAZolam 0.5 MG (XANAX) TAB PO PRN (08:40)
[2021-10-22] MEDS ORDERED: morphine INJ 4 MG/ML 1 ML (VIAL/SYRINGE) IVP ONE ×2 (09:00)
--- NOTE | 2021-10-22 09:00 | Tele-ICU Progress Note ---
Subjective Date Seen by a Provider: Oct 22, 2021 Time Seen by a Provider: 08:55 Subjective/Events-last exam he is very anxious and tachypneic. unable to take po ativan. maxed on precedex. will try on iv morphine. currently o2 sats 92-93%. Review of Systems ROS PER RN Sepsis Event Evaluation Height, Weight, BMI Height: '" Weight: lbs. oz. kg; 28.97 BMI Method: Focused Exam Lactate Level 10/20/21 11:55: Lactic Acid Level 3.57*H 10/20/21 13:55: Lactic Acid Level 2.65*H 10/20/21 18:04: Lactic Acid Level 1.62 Exam Exam Patient acknowledged, consented, and participated in this virtual visit which was conducted using real time audio/video Vital Signs Date Time Temp Pulse Resp B/P (MAP) Pulse Ox O2 Delivery O2 Flow Rate FiO2 10/22/21 08:30 NIV Bilevel 90.00 10/22/21 08:00 NIV Bilevel 85.00 10/22/21 07:57 36.5 10/22/21 07:45 63 45 92 85.00 10/22/21 07:00 51 10/22/21 06:00 48 131/75 92 NIV Bilevel 100.00 10/22/21 05:00 52 128/95 96 NIV Bilevel 100.00 10/22/21 04:00 53 36 118/70 91 NIV Bilevel 100.00 10/22/21 04:00 36.3 10/22/21 04:00 92 NIV Bilevel 75 10/22/21 03:30 NIV Bilevel 100.00 10/22/21 03:00 58 51 110/75 90 NIV Bilevel 100.00 10/22/21 02:24 49 38 90 75.00 10/22/21 02:00 49 31 120/68 88 NIV Bilevel 100.00 10/22/21 01:00 59 107/64 92 NIV Bilevel 100.00 10/22/21 01:00 50 10/22/21 00:00 49 34 112/65 89 NIV Bilevel 75.00 10/22/21 00:00 92 NIV Bilevel 75 10/22/21 00:00 36.3 10/21/21 23:00 50 36 122/64 89 NIV Bilevel 75.00 10/21/21 22:21 60 57 92 75.00 10/21/21 22:00 50 36 122/64 89 NIV Bilevel 75.00 10/21/21 21:00 52 122/70 90 NIV Bilevel 75.00 10/21/21 20:00 92 NIV Bilevel 75 10/21/21 20:00 58 31 119/67 91 NIV Bilevel 75.00 10/21/21 19:29 36.2 10/21/21 19:00 55 44 129/87 92 NIV Bilevel 75.00 10/21/21 19:00 67 10/21/21 18:56 63 34 93 75.00 10/21/21 18:00 54 31 128/80 90 NIV Bilevel 75.00 10/21/21 17:00 58 32 128/73 92 NIV Bilevel 75.00 10/21/21 16:18 36.3 10/21/21 16:00 56 136/79 92 NIV Bilevel 75.00 10/21/21 16:00 92 NIV Bilevel 75 10/21/21 15:00 60 139/84 90 NIV Bilevel 75.00 10/21/21 14:50 57 35 90 75.00 10/21/21 14:46 NIV Bilevel 75.00 10/21/21 14:16 95 NIV Bilevel 65.00 10/21/21 14:13 95 NIV Bilevel 90.00 10/21/21 13:00 66 10/21/21 12:00 95 NIV Bilevel 100 10/21/21 12:00 72 31 135/71 95 NIV Bilevel 100.00 10/21/21 11:55 37.1 10/21/21 11:04 89 144/81 10/21/21 11:00 107 24 121/70 94 NIV Bilevel 100.00 10/21/21 10:34 99 42 93 75.00 10/21/21 10:00 98 31 85/60 95 NIV Bilevel 100.00 10/21/21 09:34 92 NIV Bilevel 100.00 10/21/21 09:00 96 38 144/91 75 Vapotherm 40.00 100.00 I & O 10/22/21 07:00 Intake Total 1800 ml Output Total 1550 ml Balance 250 ml Height & Weight Height: '" Weight: lbs. oz. kg; 28.97 BMI Method: General Appearance: Anxious, Chronically ill, Mild Distress, Other (On BiPAP) HEENT: PERRL/EOMI, Normal ENT Inspection, Pharynx Normal, Moist Mucous Membranes Neck: Full Range of Motion, Normal Inspection, Non Tender Respiratory: Chest Non Tender, No Respiratory Distress, Accessory Muscle Use, Decreased Breath Sounds, Wheezing Cardiovascular: Regular Rate, Rhythm, No Edema, No Gallop, No JVD, No Murmur, Normal Peripheral Pulses Capillary Refill: Less Than 3 Seconds Gastrointestinal: non tender, soft Extremity: Normal Capillary Refill, Normal Inspection, Normal Range of Motion, Non Tender, No Calf Tenderness, No Pedal Edema Neurologic/Psychiatric: Alert, Oriented x3, No Motor/Sensory Deficits, Normal Mood/Affect Skin: Normal Color, Warm/Dry Lymphatic: No Adenopathy Other comments PE PER RN Results Lab Laboratory Tests 10/20/21 11:55 10/21/21 04:55 10/22/21 05:23 Assessment/Plan Assessment/Plan Tele-ICU Physician , consultation) Available chart/ vitals / labs / Images reviewed H&P is from ER notes Patient's information available about PMH, Shx, Fhx allergy reviewed in EMR. ROS as per chart and RN report Now in ICU, hemodynamically stable Video assessment done using teleICU camera, rest of exam as per RN Consultants: Hospital course: 10/20- ER>ICU , covid, PNA , BIPAP 15/8 60 % rr 40 , MV 27 L 10/21. TRIED ON VAPO THERM . DID NOT TOLERATE. BACK ON BIPAP 15/8 WITH 100% FIO2 10/22. CONTINUED ON BIPAP, VERY ANXIOUS BUT MORPHINE HELPED A/P AHRF / ARDS due to severe COVID19 ( CTA neg for PE - BIPAP 15/8 100 % -prone position if able HIGH RISK FOR INTUBATION [id number]/COVID-19 PNA ( DX ? unvaccinted , s/p moniclonal AB infusion 10/16 , steroids , abx --Dexamethasone -Hypercoagulable state -> lovenox full dose ( no evidence of large PE on CT on 10/18 and 10/20 ) Suspected superimposed bact PNA -empiric abx started as out patient m, Zosyn srtarted on 10/20 Elevated lactate is due to hypoxia - follow Lines : periph (Central Line Necessity Reviewed) Fitzpatrick: OG: Nutrition: Analgesia: Anxiety/ delirium VTE Prophylaxis: panchito full dose Stress Ulcer Prophylaxis: Plans in collaboration with bedside consultants and IM MDs. RN to reach out if any questions or concerns A total of 20 minutes of critical care time was devoted to this patient today, required to treat and/or prevent further deterioration of critical care condition ( as above) . Critical Care: Critically Ill Patient Time spent with patient (mins): 20 SHARITA CASTANEDA MD Oct 22, 2021 08:59
--- NOTE | 2021-10-22 10:52 | Progress Note - Hospitalist ---
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 I did update his at 1600 hrs. Subjective/Events-last exam Pt really struggling Respiratory rate is 30-40 on max BiPAP He is a do not intubate HR was in the high 80s when he was in an anxious state Morphine will be given to help with that Review of Systems General: Fatigue, Malaise Pulmonary: Dyspnea Focused Exam Lactate Level 10/20/21 11:55: Lactic Acid Level 3.57*H 10/20/21 13:55: Lactic Acid Level 2.65*H 10/20/21 18:04: Lactic Acid Level 1.62 Objective Exam Vital Signs Vital Signs Date Time Temp Pulse Resp B/P (MAP) Pulse Ox O2 Delivery O2 Flow Rate FiO2 10/23/21 04:00 61 139/73 94 NIV Bilevel 100.00 10/23/21 02:42 31 10/22/21 23:10 100 10/22/21 20:45 37.0 Capillary Refill : Less Than 3 Seconds General Appearance: Anxious, Moderate Distress, Other (Tachypneic) Respiratory: No Accessory Muscle Use, No Respiratory Distress, Decreased Breath Sounds Cardiovascular: Regular Rate, Rhythm Results/Procedures Lab Patient resulted labs reviewed. Assessment/Plan Assessment and Plan Assess & Plan/Chief Complaint Assessment: Acute hypoxic respiratory failure COVID-19 pneumonia DO NOT INTUBATE Plan: COVID-19 protocol Updated Patient high risk for intubation but he declines 10/22/2021: Morphine to help with tachypnea Patient is a DO NOT INTUBATE Critical Care Critically Ill Patient Diagnosis/Problems Diagnosis/Problems (1) Acute respiratory failure due to COVID-19 Status: Acute (2) Pneumonia due to COVID-19 virus Status: Acute (3) Dehydration Status: Acute ALEXANDRE GOLDEN DO Oct 22, 2021 10:52
[2021-10-22] MEDS: morphine INJ 4 MG/ML 1 ML (VIAL/SYRINGE) IVP PRN (11:19)
[2021-10-22] MEDS: NS IV 1000 ML 1,000 ML IV SCH (11:27)
[2021-10-22] MEDS: DexMEDEtomidine 250 ML DRIP 250 ML IV SCH (12:21)
[2021-10-22 15:01] VITALS: BP 138/95
[2021-10-22 19:08] VITALS: BP 136/84
[2021-10-22 20:48] LABS: ABG BASE EXCESS -0.6 MMOL/L (-2.5-2.5); ABG OXYGEN SATURATION 91 % (94-100); ABG PCO2 34 MMHG (35-45); ABG PH 7.44 (7.37-7.43); ABG PO2 57 MMHG (79-93); ABG TCO2 24.1 MMOL/L (21.0-31.0)
[2021-10-22 20:50] LABS: ALLENS TEST POSITIVE; INSPIRED O2 100% BIPAP; PATIENT TEMP 36.6; VENTILATOR NO
[2021-10-22 22:43] VITALS: BP 116/59
[2021-10-23] MEDS: morphine INJ 4 MG/ML 1 ML (VIAL/SYRINGE) IVP PRN ×3 (01:34→09:48)
[2021-10-23] MEDS: NS IV 1000 ML 1,000 ML IV SCH (01:51)
[2021-10-23] MEDS: RT-ALBUTEROL HFA 8.5 GM INHALER IH SCH ×3 (02:41→10:06)
[2021-10-23 02:42] VITALS: BP 127/72
[2021-10-23] MEDS: ENOXAPARIN 100 MG/1 ML (LOVENOX) SYR SC SCH (03:19)
[2021-10-23] MEDS: PIPERACILLIN SODIUM/TAZOBACTAM 4.5 GM in NS (IVPB) 100 ML IV SCH (03:19)
[2021-10-23] MEDS: morphine INJ 4 MG/ML 1 ML (VIAL/SYRINGE) IV PRN ×2 (03:20→06:31)
--- NOTE | 2021-10-23 06:18 | Progress Note - Hospitalist ---
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 I did update his at 1600 hrs. Focused Exam Lactate Level 10/20/21 18:04: Lactic Acid Level 1.62 Objective Exam Vital Signs Vital Signs Date Time Temp Pulse Resp B/P (MAP) Pulse Ox O2 Delivery O2 Flow Rate FiO2 10/23/21 14:00 46 NIV Bilevel 100.00 10/23/21 13:00 96 10/23/21 13:00 14 10/23/21 12:00 68/47 10/23/21 11:15 100 10/23/21 07:50 36.5 Capillary Refill : Less Than 3 Seconds Results/Procedures Lab Laboratory Tests 10/23/21 07:07 Patient resulted labs reviewed. Assessment/Plan Assessment and Plan Assess & Plan/Chief Complaint Assessment: Acute hypoxic respiratory failure COVID-19 pneumonia DO NOT INTUBATE Plan: COVID-19 protocol Updated Patient high risk for intubation but he declines 10/22/2021: Morphine to help with tachypnea Patient is a DO NOT INTUBATE Critical Care Critically Ill Patient Diagnosis/Problems Diagnosis/Problems (1) Acute respiratory failure due to COVID-19 Status: Acute (2) Pneumonia due to COVID-19 virus Status: Acute (3) Dehydration Status: Acute ALXEANDRE GOLDEN DO Oct 23, 2021 06:18
[2021-10-23] MEDS ORDERED: LORazepam INJ 2 MG/ML (ATIVAN) VIAL ONE (06:42)
[2021-10-23] MEDS: LORazepam INJ 2 MG/ML (ATIVAN) VIAL IVP PRN ×2 (06:47→11:48)
[2021-10-23 07:14] LABS: ABG BASE EXCESS -1.4 MMOL/L (-2.5-2.5); ABG OXYGEN SATURATION 78 % (94-100); ABG PCO2 31 MMHG (35-45); ABG PH 7.46 (7.37-7.43); ABG PO2 45 MMHG (79-93)
[2021-10-23 07:20] VITALS: BP 116/69
[2021-10-23 07:21] LABS: BASOPHILS % (AUTO) 0 % (0-10); EOSINOPHILS # (AUTO) 0.1 10^3/uL (0.0-0.3); EOSINOPHILS % (AUTO) 1 % (0-10); HEMATOCRIT 45 % (40-54); HEMOGLOBIN 15.3 g/dL (13.3-17.7); LYMPHOCYTES # (AUTO) 0.2 10^3/uL (1.0-4.0); LYMPHOCYTES % (AUTO) 4 % (12-44); MEAN CORPUSCULAR HEMOGLOBIN 31 pg (25-34); MEAN CORPUSCULAR HGB CONC 34 g/dL (32-36); MEAN CORPUSCULAR VOLUME 91 fL (80-99); MEAN PLATELET VOLUME 9.8 fL (9.0-12.2); MONOCYTES # (AUTO) 0.1 10^3/uL (0.0-1.0); MONOCYTES % (AUTO) 2 % (0-12); NEUTROPHILS # (AUTO) 5.3 10^3/uL (1.8-7.8); NEUTROPHILS % (AUTO) 92 % (42-75); PLATELET COUNT 421 10^3/uL (130-400); WHITE BLOOD COUNT 5.7 10^3/uL (4.3-11.0)
[2021-10-23 07:23] LABS: ALLENS TEST YES-POS; INSPIRED O2 100%; VENTILATOR NO
[2021-10-23 07:51] LABS: ALBUMIN 2.6 GM/DL (3.2-4.5); BILIRUBIN,TOTAL 0.9 MG/DL (0.1-1.0); CALCIUM 8.4 MG/DL (8.5-10.1); CREATININE SERUM 0.68 MG/DL (0.60-1.30); MAGNESIUM 2.3 MG/DL (1.6-2.4); PHOSPHORUS 2.7 MG/DL (2.3-4.7); POTASSIUM 4.2 MMOL/L (3.6-5.0); TOTAL PROTEIN 6.1 GM/DL (6.4-8.2)
[2021-10-23] MEDS: DexMEDEtomidine 250 ML DRIP 250 ML IV SCH (08:17)
[2021-10-23 10:06] VITALS: BP 96/65
[2021-10-23] MEDS ORDERED: GLYCOPYRROLATE 0.2 MG/ML (ROBINUL) 2 ML VIAL IV PRN (11:30)
[2021-10-23] MEDS ORDERED: ACETAMINOPHEN 650 MG SUPP (TYLENOL) PR PRN (11:30)
[2021-10-23] MEDS ORDERED: RT-ALBUTEROL/IPRATROPIUM 3 ML (DUONEB) VIAL INH PRN (11:30)
[2021-10-23] MEDS ORDERED: ARTIFICAL TEARS 0.4 ML UNIT DOSE (REFRESH PLUS) OU PRN (11:30)
[2021-10-23] MEDS ORDERED: SALIVA STIMULANT MOUTH SPRAY (BIOTENE) 1.5 OZ MM PRN (11:30)
[2021-10-23] MEDS ORDERED: ONDANSETRON 4 MG/2 ML (SDV) Z0FRAN IVP PRN (11:30)
[2021-10-23] MEDS ORDERED: LORazepam INJ 2 MG/ML (ATIVAN) VIAL IVP PRN (11:30)
[2021-10-23] MEDS: morphine INJ 10 MG/ML 1ML (SYR OR VIAL) IVP PRN ×2 (11:48→12:58)
--- NOTE | 2021-10-23 15:39 | Discharge Summary ---
Discharge Summary Hospital Course Was the Problem List Reviewed?: Yes Problems/Dx: (1) Acute respiratory failure due to COVID-19 Status: Acute (2) Pneumonia due to COVID-19 virus Status: Acute (3) Dehydration Status: Acute Hospital Course Date of Admission: Oct 20, 2021 at 15:42 Admission Diagnosis : Family Physician/Provider: Demetrio Gray MD Date of Discharge: 10/23/21 Discharge Diagnosis: Acute hypoxic respiratory failure from COVID-19 pneumonia resulting in Hospital Course: Patient had a short hospital course after he was admitted for COVID-19 pneumonia acute hypoxic respiratory failure. Patient was placed in the ICU. Remains on Vapotherm and BiPAP. He was maxed out on BiPAP. He made it clear he was DO NOT INTUBATE prior to ICU admission. He said that on multiple occasions. I updated . Patient progressed and declined and patient was deemed comfort care and his 2 sons were able to be at the bedside when he . Labs and Pending Lab Test: Laboratory Tests 10/22/21 20:35: Blood Gas Puncture Site RIGHT RADIAL, Blood Gas Patient Temperature 36.6, Arterial Blood pH 7.44H, Arterial Blood Partial Pressure CO2 34L, Arterial Blood Partial Pressure O2 57L, Arterial Blood HCO3 23, Arterial Blood Total CO2 24.1, Arterial Blood Oxygen Saturation 91L, Arterial Blood Base Excess -0.6, Walter Test POSITIVE, Blood Gas Ventilator Setting NO, Blood Gas Inspired Oxygen 100% BIPAP 10/23/21 07:07: Blood Gas Puncture Site RT RAD, Blood Gas Patient Temperature 36.0, Arterial Blood pH 7.46H, Arterial Blood Partial Pressure CO2 31L, Arterial Blood Partial Pressure O2 45L, Arterial Blood HCO3 22L, Arterial Blood Total CO2 23.0, Arterial Blood Oxygen Saturation 78L, Arterial Blood Base Excess -1.4, Walter Test YES-POS, Blood Gas Ventilator Setting NO, Blood Gas Inspired Oxygen 100%, White Blood Count 5.7, Red Blood Count 4.95, Hemoglobin 15.3, Hematocrit 45, Mean Corpuscular Volume 91, Mean Corpuscular Hemoglobin 31, Mean Corpuscular Hemoglobin Concent 34, Red Cell Distribution Width 12.5, Platelet Count 421H, Mean Platelet Volume 9.8, Immature Granulocyte % (Auto) 1, Neutrophils (%) (Auto) 92H, Lymphocytes (%) (Auto) 4L, Monocytes (%) (Auto) 2, Eosinophils (%) (Auto) 1, Basophils (%) (Auto) 0, Neutrophils # (Auto) 5.3, Lymphocytes # (Auto) 0.2L, Monocytes # (Auto) 0.1, Eosinophils # (Auto) 0.1, Basophils # (Auto) 0.0, Immature Granulocyte # (Auto) 0.0, Sodium Level 146H, Potassium Level 4.2, Chloride Level 115H, Carbon Dioxide Level 18L, Anion Gap 13, Blood Urea Nitrogen 22H, Creatinine 0.68, Estimat Glomerular Filtration Rate 117, BUN/Creatinine Ratio 32, Glucose Level 149H, Calcium Level 8.4L, Corrected Calcium 9.5, Phosphorus Level 2.7, Magnesium Level 2.3, Total Bilirubin 0.9, Aspartate Amino Transf (AST/SGOT) 36H, Alanine Aminotransferase (ALT/SGPT) 35, Alkaline Phosphatase 111, Total Protein 6.1L, Albumin 2.6L Microbiology 10/21/21 MRSA Screen - Final, Complete MRSA not isolated 10/20/21 Urine Culture - Final, Complete NO GROWTH 10/20/21 Blood Culture - Preliminary, Resulted No growth Home Meds Active Reported Fish Oil 1,000 mg Softgel ([place]-3/Dha/Epa/Fish Oil) 1 Each Capsule 1 Each PO DAILY Hydrocodone-Acetamin 5-325 mg (Hydrocodone/Acetaminophen) 1 Each Tablet 1 Tab PO Q4H PRN Azithromycin 500 Mg Tablet 500 Mg PO DAILY FILLED 10-19-2021 #4/4 DAY SUPPLY Ibuprofen 800 Mg Tablet 800 Mg PO Q8H PRN Metoclopramide HCl 10 Mg Tablet 10 Mg PO Q6H PRN Assessment/Pt Instructions Discharge Planning: <30 minutes discharge planning Discharge Physical Examination Vital Signs Vital Signs Date Time Temp Pulse Resp B/P (MAP) Pulse Ox O2 Delivery O2 Flow Rate FiO2 10/23/21 14:00 46 NIV Bilevel 100.00 10/23/21 13:00 96 10/23/21 13:00 14 10/23/21 12:00 68/47 10/23/21 11:15 100 10/23/21 07:50 36.5 General Appearance: Other () Allergies: Coded Allergies: No Known Drug Allergies (Unverified , 10/16/21) Discharge Summary Date of Admission Oct 20, 2021 at 15:42 Date of Discharge Admission Diagnosis Assessment: Acute hypoxic respiratory failure COVID-19 pneumonia DO NOT INTUBATE Plan: COVID-19 protocol Updated Patient high risk for intubation but he declines Comfort Measures/ End of Life Care: Comfort Measures Discharge Diagnosis Assessment: Acute hypoxic respiratory failure COVID-19 pneumonia DO NOT INTUBATE Plan: COVID-19 protocol Updated Patient high risk for intubation but he declines 10/22/2021: Morphine to help with tachypnea Patient is a DO NOT INTUBATE (1) Acute respiratory failure due to COVID-19 Status: Acute (2) Pneumonia due to COVID-19 virus Status: Acute (3) Dehydration Status: Acute ALEXANDRE GOLDEN DO Oct 23, 2021 15:39
== END 2021-10-23 13:17 | disposition expired | DRG 177 ==
LOC: EDUNIT# 11:37 → ER FS 11:38 → ICU 15:42
PROVIDERS: ADMIT Internal Medicine; ATTEND Internal Medicine
PROC: 5A09457 Assistance with Respiratory Ventilation, 24-96 Consecutive Hours, Continuous Positive Airway Pressure (ICD-10-PCS; principal; 2021-10-20)
DX: U07.1 COVID-19 (principal); J12.82 Pneumonia due to coronavirus disease 2019; J80 Acute respiratory distress syndrome; E86.0 Dehydration; Z66 Do not resuscitate; Z79.899 Other long term (current) drug therapy; Z87.891 Personal history of nicotine dependence; Z51.5 Encounter for palliative care
CPT/HCPCS: 36415; 71045; 71275; 80053; 81000; 82805; 82947; 83605; 83735; 83880; 84100; 84484; 85007; 85025; 85027; 85610; 85730; 87040; 87081; 87088; 94640; 94660; 99291